=== PATIENT | male | born 1980 | race Caucasian/White ===

== ENCOUNTER 2022-09-17 14:05 | Outpatient (CLI) | payer OTHER | END 2022-09-17 14:06 | disposition home or self-care (01) | LOC: NAV RAD 14:05 | PROVIDERS: ATTEND Family Medicine | DX: S46.011S Strain of muscle(s) and tendon(s) of the rotator cuff of right shoulder, sequela (principal); M51.16 Intervertebral disc disorders with radiculopathy, lumbar region; M47.26 Other spondylosis with radiculopathy, lumbar region | CPT/HCPCS: 72100 ==